=== PATIENT | male | born 1965 | race African-American/Black ===

== ENCOUNTER 2019-04-20 00:32 | Emergency (ER) | payer SELFPAY ==
[~2019-04-20] VITALS: Ht 182.9 cm; Wt 122.5 kg
--- NOTE | 2019-04-20 00:49 | NUR ---
ED Nurse Note: PT WALKED IN FOR BLOOD PRESSURE CHECK AND WORK CLEARANCE, PT REPORTS HE NOTED HIS BP HIGH AT HOME, SYS 170S. PT DENIES ANY SX AT THIS TIME, DENIES HEADACHE, WEAKNESS, N/V, NOR VISION/HEARING CHANGES. PT AA&OX4, GCS=15 SKIN WARM AND DRY, RESP EVEN AND UNLABORED ON RA, AMBULATORY W/ STEADY GAIT, WILL CONT MONITOR.
[2019-04-20 00:50] VITALS: BP 162/102
[2019-04-20] MEDS ORDERED: NORVASC5 MG ORAL (01:31)
--- NOTE | 2019-04-20 01:39 | Emergency Room Report ---
History of Present Illness General Chief Complaint: Hypertension Source: Patient Present Illness HPI 53-year-old male presents after elevated blood pressure at home. Patient a prior history of hypertension. He states is long-standing. Patient denies any visual changes or headache. He denies any problems with urination. He reports urinating normally. He states that previous similar symptoms in the past. He denies any chest discomfort or shortness of breath.Denies being a smoker. Denies any current complaints at all. He states he feels fine. He states he plays sports regularly without any chest discomfort. Allergies: Coded Allergies: No Known Allergies (Unverified , 04/20/19) Patient History Past Medical History: see triage record Reviewed Nursing Documentation: PMH: Agreed; PSxH: Agreed Nursing Documentation-PMH Past Medical History: No History, Except For Hx Hypertension: Yes Review of Systems All Other Systems: negative except mentioned in HPI Physical Exam Vital Signs Date Time Temp Pulse Resp B/P (MAP) Pulse Ox O2 Delivery O2 Flow Rate FiO2 04/20/19 00:35 97.7 79 18 186/103 (130) 97 Room Air Sp02 EP Interpretation: reviewed, normal General Appearance: normal inspection, well appearing, no apparent distress, alert, GCS 15, non-toxic Head: atraumatic ENT: normal ENT inspection, hearing grossly normal, normal voice Neck: normal inspection, full range of motion, supple, no bony tend Respiratory: normal inspection, lungs clear, normal breath sounds, no respiratory distress, no retraction, no wheezing Cardiovascular #1: regular rate, rhythm, no edema Gastrointestinal: normal inspection, normal bowel sounds, non tender, soft, no guarding, no hernia Genitourinary: no CVA tenderness Musculoskeletal: normal inspection, back normal, normal range of motion Neurologic: normal inspection, alert, responsive, speech normal Psychiatric: normal inspection, judgement/insight normal, mood/affect normal Medical Decision Making Diagnostic Impression: Primary Impression: Hypertension ER Course Patient presented for elevated blood pressure. Differential diagnosis include was not limited to a symptomatic hypertension, hypertensive crisis, medication withdrawal among others. Patient is asymptomatic. Patient given medications for blood pressure control. He was given prescription for Norvasc and hydrochlothiazide.. patient was advised to follow-up with his primary care physician Dr. Urbina. He is advised to return if worse. Last Vital Signs Date Time Temp Pulse Resp B/P (MAP) Pulse Ox O2 Delivery O2 Flow Rate FiO2 04/20/19 00:50 97.7 68 18 162/102 97 Room Air Status: improved Disposition: HOME, SELF-CARE Condition: Stable Scripts Hydrochlorothiazide* (HYDROCHLOROTHIAZIDE*) 25 Mg Tablet 25 MG ORAL DAILY, #30 TAB Prov: Darrell Burden MD 04/20/19 Amlodipine Besylate (Norvasc) 5 Mg Tablet 5 MG ORAL DAILY, #30 TAB Prov: Darrell Burden MD 04/20/19 Referrals: NOT CHOSEN [facility]/,REFERRING (PCP) Departure Forms: Return to Work Return to Work in (Days): 1 Patient Instructions: Hypertension Darrell Burden MD Apr 20, 2019 01:38
[2019-04-20 01:50] VITALS: BP 190/120
--- NOTE | 2019-04-20 01:50 | NUR ---
Note rmoeo in EDM - 04/20/19 at 0159 by KDEARING ED Nurse Note: Farrukh CURRAN from [facility] and [facility], c/o 06/22 abdominal pain x3days. Hx of ulcers
--- NOTE | 2019-04-20 01:50 | NUR ---
ER DISCHARGE NOTE: Patient is cleared to be discharged per ERMD, pt is aox4, on room air, with stable vital signs. pt was given dc and prescription instructions, pt was able to verbalize understanding, pt id band removed. pt is able to ambulate with steady gait. pt took all belongings. BP 190/120, aware
[2019-04-20] MEDS ORDERED: HYDROCHLOROTHIA25 MG ORAL (01:54)
== END 2019-04-20 01:50 | disposition home or self-care (01) ==
LOC: EMR 01:00
DX: I10 Essential (primary) hypertension (principal)
CPT/HCPCS: 99282